=== PATIENT | female | born 1965 | race Caucasian/White ===

== ENCOUNTER 2018-07-13 07:49 | Day surgery (SDC) | payer OTHER ==
[2018-07-13] MEDS ORDERED: Ringers Lactate 1,000 ML IV ONE ×3 (08:46→15:15)
[2018-07-13] MEDS ORDERED: NS 0.9% VIAL 10 ML ONE ×3 (09:11→11:41)
[2018-07-13] MEDS ORDERED: CEFAZOLIN/SWI 1gm 1 GM/10 ML SYR ONE (09:15)
[2018-07-13] MEDS: BACITRACIN 50000 UNIT VIAL ONE ×2 (09:16→11:01)
[2018-07-13] MEDS: GENTAMICIN SULF 80 MG/2ML INJ ONE ×2 (09:17→11:01)
[2018-07-13] MEDS ORDERED: LIDOCAINE 1% MPF 5 ML VIAL ONE (10:55)
[2018-07-13] MEDS ORDERED: MIDAZOLAM HCL 2 MG/2 ML INJ ONE (10:55)
[2018-07-13] MEDS ORDERED: PROPOFOL 200 MG/20 ML VIAL IV ONE (10:55)
[2018-07-13] MEDS ORDERED: FENTANYL CITR 250 MCG/5 ML ONE (10:55)
[2018-07-13] MEDS ORDERED: ONDANSETRON 4 MG/2 ML VIAL ONE ×2 (10:56→13:55)
[2018-07-13] MEDS ORDERED: VECURONIUM 10 MG/VIAL IV ONE (10:56)
[2018-07-13] MEDS ORDERED: DEXAMETHASONE 4 MG/ML VIAL ONE (10:58)
[2018-07-13] MEDS ORDERED: SCOPOLAMINE HYDROBROMIDE PATCH TD ONE (11:04)
[2018-07-13] MEDS ORDERED: EPHEDRINE SULF 50 MG/ML VIAL ONE (11:41)
[2018-07-13] MEDS ORDERED: ROCURONIUM 50 MG/5 ML VIAL IV ONE (12:57)
[2018-07-13] MEDS ORDERED: KETOROLAC 30 MG/ML INJ ONE (13:55)
[2018-07-13] MEDS ORDERED: GLYCOPYRROLATE 0.2 MG/ML SYR ONE (13:55)
[2018-07-13] MEDS ORDERED: NEOSTIGMINE 1 MG/ML -10 ML VIAL ONE (13:57)
[2018-07-13] MEDS ORDERED: Mastisol Adhesive Liq ONE (14:23)
[2018-07-13] MEDS ORDERED: FENTANYL CITR 100 MCG/2 ML ONE ×2 (14:40→15:09)
[2018-07-13] MEDS ORDERED: HYDROCODONE/APAP 10/325 TAB ONE (16:58)
--- NOTE | 2018-07-14 02:07 | OP ---
Date of Procedure: 07/13/2018 Surgeon: nErique Zacarias MD Forming Tube Selector: Shankar. Preoperative Diagnosis: Breast descent. Postoperative Diagnosis: Breast descent. Procedure Performed: Lift. Anesthesia: General. Procedure In Detail: After satisfactory induction of general anesthesia, the chest was prepped with DuraPrep. Dry sterile drapes were applied in the usual manner. A 45 template was used to outline th e right and left areola. Then, the transverse curvilinear inferior incisions were made. The interve ian skin was de-epithelialized with EpiCut or dermabrader. The flap was then elevated 1.5 cm thickn ess towards the sternum, clavicle, and anterior axillary line. This was done on both sides. Then, t he inferior incision was made full-thickness and the de-epithelialized tissue was formed into a cone with 2-0 PDS suture. Prior to conization, excess lateral fat with breast tissue was removed. This w as done on both sides. Conization was performed with 2-0 PDS and then straps were elevated at 12 o'c lock, 1:30, and 2 o'clock positions on the right breast and mirror image on the left. The straps wer e then woven in and out of pectoralis major muscle, back to the base of the cone, and back to the pec toralis major muscle, and then sewn to themselves with 2-0 PDS for 12 o'clock and 1:30 strap. The 2 o'clock strap was sewn over the sternum at the 3 o'clock position with 2-0 Ethibond. This was done o n the both sides. FLORIDALMA drains were brought out. The wound was irrigated with antibiotic solution and the wound was closed using 3-0 Vicryl subcu, 3-0 PDS running subcuticular tied in the vertical meridi an of the breast. This was done on both sides simultaneously. The patient was sat up. Site for new nipple-areola complex was marked out. The tissue was cored out. A 45 template was used and then se wn with interrupted 4-0 PDS followed by 4-0 PDS running subcuticular. Dressings consisted of tinctur e of benzoin, Steri-Strips, 5x5s, fluffs, and Gonzales wrap. Amount removed was 72 g from both the right and left sides. The patient tolerated the procedure well and returned to recovery. GH/MODL Voice ID: [id number] Report ID: [id number]
== END 2018-07-13 17:40 | disposition home or self-care (01) ==
LOC: OR 07:49
PROVIDERS: ATTEND Specialist
PROC: 0HSV0ZZ Reposition Bilateral Breast, Open Approach (ICD-10-PCS; principal; 2018-07-13 10:00)
DX: N64.81 Ptosis of breast (principal)
CPT/HCPCS: 88305; J0690; J1580; J2250; J2405; J2704; J2710; J3010